=== PATIENT | male | born 1955 | race Caucasian/White ===

== ENCOUNTER 2021-03-22 08:17 | Emergency (ER) | payer MEDICARE, OTHER ==
[2021-03-22] MEDS ORDERED: methylPREDNISolone Sodium Succinate 125 MG/2 ML SDV IM ONE (09:16)
--- NOTE | 2021-03-22 09:18 | EDM.PDOC ---
ED HPI GENERAL MEDICAL PROBLEM - General Chief Complaint: Bite:Animal, Insect Stated Complaint: STUNG BY BEES Time Seen by Provider: 03/22/21 09:00 Source of Information: Reports: Patient History Limitations: Reports: No Limitations - History of Present Illness INITIAL COMMENTS - FREE TEXT/NARRATIVE: 65-year-old male who arrives with a swollen left arm. He was staining his deck yesterday and got stung by a wasp. He then sprayed the nest, and went out later and got stung 3 more times. He did not have an immediate reaction, but that he has hand and forearm are very swollen and edematous. It is numb up to his mid upper arm. No fevers or chills, no shortness of breath. No history of bee sting allergies. Onset: Gradual Duration: Hour(s): (Worsening over the past 12 hours) Location: Reports: Upper Extremity, Left Quality: Reports: Ache, Other (Arm is numb) Associated Symptoms: Reports: No Other Symptoms Left Arm Pain Score (Numeric/FACES): 6 - Related Data Allergies Allergy/AdvReac Type Severity Reaction Status Date / Time No Known Allergies Allergy Verified 03/22/21 08:47 Home Meds: Home Meds NK [No Known Home Meds] 03/22/21 [History] Past Medical History Musculoskeletal History: Reports: Fracture Other Musculoskeletal History: thums,legs, arms Endocrine/Metabolic History: Reports: Obesity/BMI 30+ - Infectious Disease History Infectious Disease History: Reports: Chicken Pox Social & Family History - Tobacco Use Tobacco Use Status *Q: Never Tobacco User Second Hand Smoke Exposure: Yes - Caffeine Use Caffeine Use: Reports: Coffee - Alcohol Use Days Per Week of Alcohol Use: 2 Number of Drinks Per Day: 2 Total Drinks Per Week: 4 - Recreational Drug Use Recreational Drug Use: No ED ROS GENERAL - Review of Systems Review Of Systems: See Below Constitutional: Denies: Fever, Chills Respiratory: Denies: Shortness of Breath GI/Abdominal: Denies: Nausea, Vomiting Skin: Reports: Erythema (Mild erythema and slight bruising is formed around the hand and wrist) Neurological: Reports: Paresthesia (Numbness of his arm) Psychiatric: Reports: No Symptoms ED EXAM, ANIMAL BITE - Physical Exam Exam: See Below Exam Limited By: No Limitations General Appearance: Alert, No Apparent Distress Head: Atraumatic Respiratory/Chest: No Respiratory Distress Extremities: Other (Exam is limited otherwise to his upper extremities. The left hand and forearm are tightly edematous and swollen. Swelling stops at the elbow. There is some erythema but no significant warmth.) Neurological: Alert, Oriented Psychiatric: Normal Affect, Normal Mood Skin Exam: Other (See HPI) Course - Vital Signs Last Recorded V/S: Last Vital Signs Temp 97 F 03/22/21 08:46 Pulse 70 03/22/21 08:46 Resp 16 03/22/21 08:46 BP 134/70 03/22/21 08:46 Pulse Ox 97 03/22/21 08:46 - Orders/Labs/Meds Meds: Medications Discontinued Medications Generic Name Dose Route Start Last Admin Trade Name Freq PRN Reason Stop Dose Admin Methylprednisolone Sodium Succinate 125 mg 03/22/21 09:16 03/22/21 09:23 Methylprednisolone Sodium Succinate 125 Mg/2 Ml Sdv IM 03/22/21 09:17 125 mg ONETIME ONE Administration - Re-Assessments/Exams Free Text/Narrative Re-Assessment/Exam: 03/22/21 09:17 Patient was reassured that this is not a systemic reaction but a local toxic swelling from the wasp stings he received yesterday. The arm was wrapped with a 4 inch Lit wrap, he was encouraged to elevate the arm if able, and was given 125 mg of IM Solu-Medrol. This should slowly improve over the next several days, he can return anytime if worsening or concerns. Departure - Departure Time of Disposition: 09:37 Disposition: Home, Self-Care 01 Clinical Impression: Bee sting reaction Qualifiers: Encounter type: initial encounter Injury intent: accidental or unintentional Qualified Code(s): T63.441A - Toxic effect of venom of bees, accidental (unintentional), initial encounter - Discharge Information Instructions: Bee, Wasp, or Hornet Sting, Adult Referrals: PCP,None [Primary Care Provider] - Forms: ED Department Discharge Care Plan Goals: Wrap arm to help with swelling, elevate if able, and increase activity as tolerated. Return anytime if systemic or widespread symptoms recur or you develop other concerns. Sepsis Event Note (ED) - Evaluation Sepsis Screening Result: No Definite Risk - Focused Exam Vital Signs: Vital Signs Temp Pulse Resp BP Pulse Ox 03/22/21 08:46 97 F 70 16 134/70 97
== END 2021-03-22 09:37 | disposition home or self-care (01) ==
LOC: JP.ED 08:17
DX: T63.441A Toxic effect of venom of bees, accidental (unintentional), initial encounter (principal); E66.9 Obesity, unspecified; Z68.32 Body mass index [BMI] 32.0-32.9, adult
CPT/HCPCS: 96372; 99282; J2930